=== PATIENT | male | born 1990 | race Caucasian/White ===

== ENCOUNTER 2021-12-08 11:13 | Inpatient (IN) | payer OTHER ==
[~2021-12-08] VITALS: Ht 172.7 cm; Wt 55.3 kg
[2021-12-08] MEDS ORDERED: IV NS 0.9% 1,000 ML BAG IV ONE (12:00)
--- NOTE | 2021-12-08 12:00 | NUR ---
BIBRA FOR HYPERGLYCEMIA (BLOOD SUGAR READING 398). THE PATIENT IS ALERT AND ORIENTED X4. IN ROOM AIR AND DENIES SOB. RESPIRATION REGULAR. ATTACHED THE PATIENT TO THE MONITOR. WARM BLANKET PROVIDED FOR COMFORT. WILL CONTINUE TO MONITOR THE PATIENT.
[2021-12-08 12:09] LABS: BASOPHILS # (AUTO) 0.1 K/uL (0.0-0.2); BASOPHILS % (AUTO) 0.3 % (0.0-2.0); EOSINOPHILS % (AUTO) 1.1 % (0.0-6.0); HEMATOCRIT 50 % (39-51); HEMOGLOBIN 17.6 g/dL (13.5-17.5); LYMPHOCYTES # (AUTO) 1.8 K/uL (0.8-4.8); LYMPHOCYTES % (AUTO) 6.6 % (20.0-44.0); MEAN CORPUSCULAR HGB CONC 35 g/dl (31.0-36.0); MEAN CORPUSCULAR VOLUME 92 fL (80-96); MONOCYTES # (AUTO) 3.1 K/uL (0.1-1.30); MONOCYTES % (AUTO) 11.3 % (2.0-12.0); NEUTROPHILS # (AUTO) 21.9 K/uL (1.8-8.9); NEUTROPHILS % (AUTO) 80.7 % (43.0-81.0); PLATELET COUNT (AUTO) 364 K/uL (150-450); RED BLOOD CELL COUNT(AUTO) 5.47 MIL/uL (4.5-6.0); WHITE BLOOD COUNT (AUTO) 27.1 K/uL (4.3-11.0)
[2021-12-08 12:23] LABS: CARBON DIOXIDE 31 mmol/L (21-32); CHLORIDE 91 mmol/L (98-107); CREATININE 3.3 mg/dL (0.6-1.3); GLUCOSE 220 mg/dL (74-106); POTASSIUM 3.9 mmol/L (3.5-5.1); SODIUM SERUM 137 mmol/L (136-145); UREA NITROGEN, BLOOD 39 mg/dL (7-18)
[2021-12-08 12:35] LABS: ALANINE AMINOTRANSFERASE 14 U/L (12-78); ALBUMIN 4.5 g/dL (3.4-5.0); ALKALINE PHOSPHATASE 156 U/L (46-116); ASPARTATE AMINOTRANSFERASE 17 U/L (15-37); BILIRUBIN,DIRECT 0.1 mg/dL (0.0-0.2); BILIRUBIN,TOTAL 0.5 mg/dL (0.2-1.0); TOTAL PROTEIN, SERUM 9.8 g/dL (6.4-8.2)
--- NOTE | 2021-12-08 13:00 | NUR ---
THE PATIENT IS TAKEN TO CT [facility]IA [facility]
--- NOTE | 2021-12-08 13:08 | NUR ---
THE PATIENT IS BACK FROM CT VIA [facility].
--- NOTE | 2021-12-08 13:41 | NUR ---
COVID ANTIGEN SWAB DONE AND SENT TO THE LAB
--- NOTE | 2021-12-08 13:47 | NUR ---
URINE COLLECTED AND SENT TO THE LAB
[2021-12-08] MEDS ORDERED: INSU100V SQ (14:16)
[2021-12-08 14:51] LABS: BILIRUBIN,URINE LARGE (NEGATIVE); COLOR,URINE DARK YELLOW (YELLOW); LEUKOCYTE ESTERASE ,URINE NEGATIVE (NEGATIVE); NITRITE, URINE NEGATIVE (NEGATIVE); PH,URINE 5.5 (5.0-8.0); PROTEIN,URINE 100 mg/dl (NEGATIVE); UGLUCOSE NEGATIVE (NEGATIVE); UROBILINOGEN,URINE 0.2 EU/dL (0.2)
[2021-12-08 15:07] LABS: BACTERIA,URINE Moderate /HPF (None Seen); HYALINE CASTS, URINE Few /LPF (None Seen); RBC,URINE 21-50 /HPF (0-2); SQUAMOUS EPITHELIAL CELL,UR Few /HPF (None Seen)
[2021-12-08 15:08] LABS: CALCIUM OXALATE CRYSTALS,UR Moderate /HPF (None Seen)
[2021-12-08 15:13] LABS: BAND % (MANUAL) 1 % (0.0-5.0); LYMPHOCYTES % (MANUAL) 4 % (16-48); METAMYELOCYTES % 1 % (0-0); MONOCYTES % (MANUAL) 6 % (0-11.0); NEUTROPHILS % (MANUAL) 88 (42-76)
--- NOTE | 2021-12-08 16:22 | NUR ---
PT PROVIDED WITH MEAL TRAY
--- NOTE | 2021-12-08 17:22 | NUR ---
ROOM 320-1
--- NOTE | 2021-12-08 17:39 | NUR ---
report given to nurse Pierson for bunny
--- NOTE | 2021-12-08 17:51 | NUR ---
PT BEING TRANSPORTED TO MED SURG FLOOR VIA [facility]
--- NOTE | 2021-12-08 19:10 | NUR ---
RN NOTE SEEN AND EXAMINED BY HOSPITALIST ANA AUGUST WITH ADMITTING ORDERS NOTED
[2021-12-08] MEDS ORDERED: DEXTROSE 50%-WATER 50 ML DISP.SYRIN IV PRN ×2 (19:30→21:00)
[2021-12-08] MEDS ORDERED: ACETAMINOPHEN 325 MG TABLET PO PRN (19:30)
[2021-12-08] MEDS: ONDANSETRON HCL/PF 4 MG/2 ML VIAL IVP PRN (19:54)
[2021-12-08] MEDS ORDERED: CEFTRIAXONE 1 G in IV D5W 50 ML IV SCH (20:00)
--- NOTE | 2021-12-08 20:03 | NUR ---
RN NOTE PT WITH EPISODE OF N/VX1, GIVEN ZOFRAN ORDERED. PROVIDED ICE WATER/ICE CHIPS REQUESTED. STARTED IVF NS @125ML/HR ORDERED. WILL CONT TO MONITOR
[2021-12-08] MEDS: IV NS 0.9% 1,000 ML IV PRN (20:05)
[2021-12-08] MEDS ORDERED: INSULIN REGULAR, HUMAN 100 UNIT/ML 3 ML VIAL SQ PRN (21:00)
[2021-12-08] MEDS: BLOOD SUGAR DIAGNOSTIC 1 EACH STRIP IN SCH (21:00)
[2021-12-08] MEDS ORDERED: BLOOD SUGAR DIAGNOSTIC 1 EACH STRIP IN SCH (21:00)
[2021-12-08] MEDS: INSULIN REGULAR, HUMAN 100 UNIT/ML 3 ML VIAL SQ PRN (21:03)
--- NOTE | 2021-12-08 21:04 | NUR ---
RN NOTE BS 446. ADMITTING HOSP [facility] MADE AWARE WITH NO NEW ORDERS. ISS COVERAGE 20 UNITS GIVEN ORDERED.
[2021-12-08 21:30] VITALS: BP 141/92
[2021-12-08] MEDS: GLUCERNA SHAKE 237 ML CAN PO SCH (22:20)
[2021-12-08] MEDS: METOCLOPRAMIDE HCL 10 MG/2 ML VIAL IV SCH (23:31)
[2021-12-09] VITALS: BP 139/89
[2021-12-09] MEDS: BLOOD SUGAR DIAGNOSTIC 1 EACH STRIP IN SCH ×10 (00:43→23:13)
[2021-12-09] MEDS: INSULIN REGULAR, HUMAN 100 UNIT/ML 3 ML VIAL SQ PRN ×3 (00:45→12:14)
[2021-12-09] MEDS: ONDANSETRON HCL/PF 4 MG/2 ML VIAL IVP PRN ×2 (02:04→22:06)
--- NOTE | 2021-12-09 02:04 | NUR ---
RN NOTE PT C/O NAUSEA. ZOFRAN GIVEN ORDERED.
[2021-12-09] MEDS: METOCLOPRAMIDE HCL 10 MG/2 ML VIAL IV SCH ×4 (06:07→23:58)
[2021-12-09] MEDS: IV NS 0.9% 1,000 ML IV PRN ×3 (06:17→19:34)
[2021-12-09 06:37] LABS: BASOPHILS # (AUTO) 0.1 K/uL (0.0-0.2); BASOPHILS % (AUTO) 0.2 % (0.0-2.0); HEMATOCRIT 40 % (39-51); HEMOGLOBIN 13.3 g/dL (13.5-17.5); LYMPHOCYTES # (AUTO) 1.7 K/uL (0.8-4.8); LYMPHOCYTES % (AUTO) 7.1 % (20.0-44.0); MEAN CORPUSCULAR HGB CONC 34 g/dl (31.0-36.0); MEAN CORPUSCULAR VOLUME 95 fL (80-96); MONOCYTES # (AUTO) 3.4 K/uL (0.1-1.30); MONOCYTES % (AUTO) 14.4 % (2.0-12.0); NEUTROPHILS # (AUTO) 18.5 K/uL (1.8-8.9); NEUTROPHILS % (AUTO) 78.3 % (43.0-81.0); PLATELET COUNT (AUTO) 266 K/uL (150-450); RED BLOOD CELL COUNT(AUTO) 4.19 MIL/uL (4.5-6.0); WHITE BLOOD COUNT (AUTO) 23.6 K/uL (4.3-11.0)
[2021-12-09 06:50] VITALS: BP 130/77
--- NOTE | 2021-12-09 06:50 | NUR ---
RN NOTE PT AWAKE IN BED, VERBALIZES HE FEELS MUCH BETTER THIS AM. NO N/V AT THIS TIME. AMBULATES TO BR TO VOID. ONGOING IVF OF NS @125ML/HR. PT IN NO ACUTE DISTRESS. SAFETY MEASURES MAINTAINED.
--- NOTE | 2021-12-09 07:15 | NUR ---
MS RN NOTE RECIEVED PATIENT ALERT AND ORIENTED ON ROOM AIR WITH NO SIGN OF DISTRESS. WITH ACCESS ON RIGHT AC G20 WITH NS RUNNING AT 125 ML/HR. WITH LAC G 18 ON SALINE LOCK, PATENT AND INTACT. NO COMPLAIN O FN/V. SAFETY MEASURES ENSURED. CALL LIGHT WITHIN REACH AT ALL TIMES.
[2021-12-09 07:29] LABS: CALCIUM, SERUM 8.6 mg/dL (8.5-10.1); CREATININE 1.7 mg/dL (0.6-1.3); MAGNESIUM 2.2 mg/dL (1.8-2.4); PHOSPHORUS 3.7 mg/dL (2.5-4.9); POTASSIUM 3.6 mmol/L (3.5-5.1)
[2021-12-09 08:00] VITALS: BP 123/60
[2021-12-09] MEDS: PANTOPRAZOLE 40 MG VIAL IV SCH (08:47)
--- NOTE | 2021-12-09 09:41 | NUR ---
RN NOTE PT AWAKE IN BED, DENIES SOB, N/V, HAS EMESIS BAG AT BEDSIDE JUST IN CASE. AMBULATES TO BR TO VOID. ONGOING IVF OF NS @125ML/HR. PT IN NO ACUTE DISTRESS. SAFETY MEASURES MAINTAINED.
[2021-12-09] MEDS: GLUCERNA SHAKE 237 ML CAN PO SCH ×2 (11:40→11:41)
[2021-12-09 16:00] VITALS: BP 122/57
--- NOTE | 2021-12-09 17:25 | NUR ---
MS RN NOTE BS CHECK AT 51MG/DL NO SIGNS AND SYMPTOMS OF HYPOGLYCEMIA. PATIENT GIVEN FOOD AND WILL RECHECK BS AT 1900H. CLOSELY MONITORED PATIENT.
[2021-12-09] MEDS ORDERED: CEFTRIAXONE 2 G in IV D5W 100 ML IV SCH (18:00)
[2021-12-09 19:26] LABS: CALCIUM, SERUM 7.6 mg/dL (8.5-10.1); CREATININE 1.4 mg/dL (0.6-1.3); POTASSIUM 3.5 mmol/L (3.5-5.1)
--- NOTE | 2021-12-09 19:30 | NUR ---
MS/RN OPENING NOTE RECEIVED PATIENT RESTING IN BED. AWAKE, ALERT AND ORIENTED X 4. ABLE TO MAKE NEEDS KNOWN. DENIES PAIN AT THIS TIME. CONTINUES ON ROOM AIR WITH NO S/SX OF RESPIRATORY DISTRESS NOTED. IV ACCESS TO LEFT AC #20G AND RIGHT AC#20G BOTH INTACT AND PATENT. CONTINUES ON IVF NS @ 250ML/HR INFUSING THROUGH LEFT IV SITE. NO S/SX OF INFILTRATION NOTED. INSULIN PUMP ON WITH BLOOD SUGAR CHECKS Q2HRS. NO S/SX OF HYPO/HYPERGLYCEMIA. CALL LIGHT WITHIN REACH. ASPIRATION, FALL AND SAFETY PRECAUTIONS MAINTAINED. ALL NEEDS ATTENDED TO AT THIS TIME.
--- NOTE | 2021-12-09 19:46 | NUR ---
PT ASLEEP IN BED BUT EASILY ROUSED, DENIES SOB, N/V, HAS EMESIS BAG AT BEDSIDE JUST IN CASE. AMBULATES TO BR TO VOID. ONGOING IVF OF NS @150ML/HR, ACCUCHECK Q2HR STARTING 1500, PT IN NO ACUTE DISTRESS. SAFETY MEASURES MAINTAINED, WILL ENDORSE TO NEXT SHIFT.
--- NOTE | 2021-12-09 19:55 | NUR ---
PATIENT ON IVF 250 ML/HR, INFUSING WELL.
[2021-12-09 20:00] VITALS: BP 117/59
[2021-12-09] MEDS ORDERED: CEFTRIAXONE 2 G in IV D5W 50 ML IV SCH (20:00)
--- NOTE | 2021-12-09 22:15 | NUR ---
MS/RN NOTE PATIENT WITH C/O NAUSEA. NO VOMITING NOTED AT THIS TIME. ADMINISTERED PRN ZOFRAN PER MD ORDERS.
[2021-12-09] MEDS ORDERED: TRAZODONE 50 MG TABLET PO SCH (23:43)
[2021-12-10] MEDS: IV NS 0.9% 1,000 ML IV PRN ×2 (00:42→06:02)
[2021-12-10] MEDS: BLOOD SUGAR DIAGNOSTIC 1 EACH STRIP IN SCH ×6 (00:48→11:00)
[2021-12-10] MEDS: ONDANSETRON HCL/PF 4 MG/2 ML VIAL IVP PRN (04:20)
--- NOTE | 2021-12-10 04:30 | NUR ---
MS/RN NOTE PATIENT HAD 3 EPISODES OF EMESIS. ADMINISTERED PRN ZOFRAN PER MD ORDERS.
--- NOTE | 2021-12-10 05:00 | NUR ---
MS/RN NOTE PATIENT CURRENTLY SLEEPING IN BED. NO S/SX OF NAUSEA NOTED.
[2021-12-10] MEDS: METOCLOPRAMIDE HCL 10 MG/2 ML VIAL IV SCH (05:46)
[2021-12-10 05:56] LABS: BASOPHILS % (AUTO) 0.2 % (0.0-2.0); EOSINOPHILS % (AUTO) 0.4 % (0.0-6.0); HEMATOCRIT 34 % (39-51); HEMOGLOBIN 11.4 g/dL (13.5-17.5); LYMPHOCYTES # (AUTO) 1.9 K/uL (0.8-4.8); LYMPHOCYTES % (AUTO) 11.8 % (20.0-44.0); MEAN CORPUSCULAR HGB CONC 34 g/dl (31.0-36.0); MEAN CORPUSCULAR VOLUME 95 fL (80-96); MONOCYTES # (AUTO) 1.9 K/uL (0.1-1.30); MONOCYTES % (AUTO) 11.7 % (2.0-12.0); NEUTROPHILS % (AUTO) 75.9 % (43.0-81.0); PLATELET COUNT (AUTO) 208 K/uL (150-450); RED BLOOD CELL COUNT(AUTO) 3.58 MIL/uL (4.5-6.0); WHITE BLOOD COUNT (AUTO) 15.8 K/uL (4.3-11.0)
[2021-12-10 06:06] LABS: CALCIUM, SERUM 7.6 mg/dL (8.5-10.1); CREATININE 1.1 mg/dL (0.6-1.3); MAGNESIUM 2.4 mg/dL (1.8-2.4); PHOSPHORUS 1.9 mg/dL (2.5-4.9); POTASSIUM 3.7 mmol/L (3.5-5.1)
--- NOTE | 2021-12-10 06:20 | NUR ---
MS/RN CLOSING NOTE PATIENT CURRENTLY RESTING IN BED. AWAKE, ALERT AND ORIENTED X 4. ABLE TO MAKE NEEDS KNOWN. DENIES PAIN AT THIS TIME. CONTINUES ON ROOM AIR WITH NO S/SX OF RESPIRATORY DISTRESS NOTED. IV ACCESS TO LEFT AC #20G AND RIGHT AC#20G BOTH INTACT AND PATENT. CONTINUES ON IVF NS @ 250ML/HR INFUSING THROUGH LEFT IV SITE. NO S/SX OF INFILTRATION NOTED. INSULIN PUMP ON WITH BLOOD SUGAR CHECKS Q2HRS. NO S/SX OF HYPO/HYPERGLYCEMIA. CALL LIGHT WITHIN REACH. ASPIRATION, FALL AND SAFETY PRECAUTIONS MAINTAINED. ALL NEEDS ATTENDED TO AT THIS TIME. WILL ENDORSE PLAN OF CARE TO ONCOMING SHIFT RN.
--- NOTE | 2021-12-10 07:48 | NUR ---
RN OPENING NOTE PATIENT AWAKE IN BED RESTING, A/O X4. NO S/S OF PAIN NOTED AT THIS TIME. ON ROOM AIR, NO DISTRESS OR SHORTNESS OF BREATH NOTED. IV ACCESS RAC #18G, LAC #20G INTACT, PATENT AND FLUSHING WELL. FALL AND SAFETY MEASURES IN PLACE, BED ALARM ON BED IN LOW AND LOCK POSITION, CALL LIGHT AND TABLE WITHIN EASY REACH, SIDE RAILS UP X2. WILL CONTINUE TO MONITOR.
[2021-12-10 08:00] VITALS: BP 116/69
[2021-12-10] MEDS: PANTOPRAZOLE 40 MG VIAL IV SCH (08:55)
[2021-12-10] MEDS ORDERED: CEPH500T PO (10:39)
--- NOTE | 2021-12-10 11:45 | NUR ---
WASHER HAND NOTE PATIENT DISCHARGE IN STABLE CONDITION, A/O X4. V/S TAKEN, STABLE AND RECORDED. NO IV ACCESS. SKIN ASSESSMENT DONE, SKIN INTACT. NAME ARM BAND REMOVED. ALL BELONGINGS CHECKED AND SIGNED. HEALTH TEACHING AND DISCHARGE INSTRUCTIONS GIVEN AND VERBALIZED UNDERSTANDING. PATIENT LEFT UNIT VIA WHEELCHAIR WITH NO SIGNS OF DISTRESS, ACCOMPANIED BY FIRE EXTINGUISHER TECHNICIAN TO THE LOBBY. CHARGE NURSE AWARE OF DISCHARGED.
[2021-12-11] MEDS ORDERED: PANTOPRAZOLE 40 MG TABLET.DR PO SCH (07:30)
== END 2021-12-10 11:40 | disposition home or self-care (01) | DRG 871 ==
LOC: ER 11:16 → MED 17:56
PROVIDERS: ADMIT Nurse Practitioner Acute Care; ATTEND Nurse Practitioner Acute Care
DX: A41.9 Sepsis, unspecified organism (principal); E10.10 Type 1 diabetes mellitus with ketoacidosis without coma; N17.0 Acute kidney failure with tubular necrosis; N30.90 Cystitis, unspecified without hematuria; E86.0 Dehydration; E10.43 Type 1 diabetes mellitus with diabetic autonomic (poly)neuropathy; Z20.822 Contact with and (suspected) exposure to COVID-19; Z88.1 Allergy status to other antibiotic agents; E83.119 Hemochromatosis, unspecified; M51.36 Other intervertebral disc degeneration, lumbar region; N20.0 Calculus of kidney; Z79.4 Long term (current) use of insulin; N32.0 Bladder-neck obstruction; K31.84 Gastroparesis
CPT/HCPCS: 36415; 71045-TC; 80048-TC; 80061-TC; 80076-TC; 81001; 82728-TC; 82962-TC; 83605-TC; 83735-TC; 84100-TC; 84484-TC; 85025-TC; 85730-TC; 86803; 87040-TC; 87081-TC; 87086-TC; 87806; C9113; C9803; G0378; J0696; J1815; J2405; J2765; J7030; J7040; J7060